=== PATIENT | male | born 1975 | race Hispanic/Latino ===

== ENCOUNTER 2020-06-15 17:38 | Emergency (ER) | payer BC ==
[~2020-06-15] VITALS: Ht 167.6 cm; Wt 88.5 kg
[2020-06-15] MEDS ORDERED: DEXAMETHASONE6 MG PO (19:13)
[2020-06-15] MEDS ORDERED: AZITHROMYCIN250 MG PO (19:16)
[2020-06-15] MEDS ORDERED: VENTOLIN HFA18 GM INH (19:17)
[2020-06-15] MEDS ORDERED: CEFDINIR300 MG PO (19:18)
[2020-06-15] MEDS ORDERED: GUAIFEN-CODEINE5 ML PO (19:22)
== END 2020-06-15 20:20 | disposition home or self-care (01) ==
LOC: FSED 17:50
DX: U07.1 COVID-19 (principal); J18.9 Pneumonia, unspecified organism; R05 Cough; J98.01 Acute bronchospasm
CPT/HCPCS: 71046; 99283